=== PATIENT | female | born 1995 | race Caucasian/White ===

== ENCOUNTER 2017-04-09 14:17 | Emergency (ER) | payer OTHER ==
[~2017-04-09] VITALS: Ht 149.9 cm; Wt 75.8 kg
[~2017-04-09 14:17] MED LIST: ALBU90OI INH; BIRTH CONTROL; CEPH500 PO; CIPR500 PO; CODACE30 PO; CRUTCH4 USE; CYCL10 PO; IBUP400 PO; IBUP800 PO; Keflex500 MG PO; METPRE4DP PO; Monodox100 MG PO; PHENA200 PO; Pyridium200 MG PO; RXCODACET PO; SPACE CHAMBER1 EACH MC
[2017-04-09] MEDS ORDERED: Veetids 500500 MG PO (15:13)
== END 2017-04-09 15:27 | disposition home or self-care (01) ==
LOC: ER 14:17
DX: J02.0 Streptococcal pharyngitis (principal); F17.200 Nicotine dependence, unspecified, uncomplicated
CPT/HCPCS: 87430; 99282

== ENCOUNTER 2017-04-17 09:54 | Emergency (ER) | payer OTHER ==
[~2017-04-17] VITALS: Ht 149.9 cm; Wt 74.8 kg
[~2017-04-17 09:54] MED LIST changes: +Veetids 500500 MG PO
== END 2017-04-17 11:45 | disposition home or self-care (01) ==
LOC: ER 09:54
DX: S60.041A Contusion of right ring finger without damage to nail, initial encounter (principal); F17.200 Nicotine dependence, unspecified, uncomplicated; W22.8XXA Striking against or struck by other objects, initial encounter
CPT/HCPCS: 29125; 73130; 90471; 90714; 99283; L3917

== ENCOUNTER 2019-03-28 11:51 | Emergency (ER) | payer OTHER ==
[~2019-03-28] VITALS: Ht 149.9 cm; Wt 81.7 kg
[~2019-03-28 11:51] MED LIST changes: +Mucinex600 MG PO
[2019-03-28] MEDS ORDERED: BENZ100A PO (12:19)
[2019-03-28] MEDS ORDERED: ONDA4ODT MM (12:19)
== END 2019-03-28 12:26 | disposition home or self-care (01) ==
LOC: ER 11:51
DX: J10.1 Influenza due to other identified influenza virus with other respiratory manifestations (principal); F17.210 Nicotine dependence, cigarettes, uncomplicated
CPT/HCPCS: 99283

== ENCOUNTER 2019-09-03 17:44 | Emergency (ER) | payer OTHER ==
[~2019-09-03] VITALS: Ht 149.9 cm; Wt 90.7 kg
[~2019-09-03 17:44] MED LIST changes: +BENZ100A PO; +ONDA4ODT MM
[2019-09-03] MEDS ORDERED: PRED20 PO (19:59)
== END 2019-09-03 20:11 | disposition home or self-care (01) ==
LOC: ER 17:44
DX: L23.7 Allergic contact dermatitis due to plants, except food (principal); F17.210 Nicotine dependence, cigarettes, uncomplicated
CPT/HCPCS: 99282

== ENCOUNTER 2019-09-20 13:35 | Emergency (ER) | payer OTHER ==
[~2019-09-20] VITALS: Ht 149.9 cm; Wt 90.7 kg
[~2019-09-20 13:35] MED LIST changes: +PRED20 PO
[2019-09-20] MEDS ORDERED: CYCL10 PO (15:42)
[2019-09-20] MEDS ORDERED: LIDO700A20 TOP (15:42)
== END 2019-09-20 16:02 | disposition home or self-care (01) ==
LOC: ER 13:35
DX: M62.830 Muscle spasm of back (principal); F17.210 Nicotine dependence, cigarettes, uncomplicated
CPT/HCPCS: 99282

== ENCOUNTER 2020-02-15 07:45 | Emergency (ER) | payer OTHER ==
[~2020-02-15] VITALS: Ht 149.9 cm; Wt 92.1 kg
[~2020-02-15 07:45] MED LIST changes: +LIDO700A20 TOP
[2020-02-15] MEDS ORDERED: Iron Chews15 MG PO (08:02)
[2020-02-15] MEDS ORDERED: IBUP600 PO (09:45)
== END 2020-02-15 09:55 | disposition home or self-care (01) ==
LOC: ER 07:45
DX: S93.601A Unspecified sprain of right foot, initial encounter (principal); F17.210 Nicotine dependence, cigarettes, uncomplicated; W20.8XXA Other cause of strike by thrown, projected or falling object, initial encounter; Y92.89 Other specified places as the place of occurrence of the external cause; Y99.0 Civilian activity done for income or pay
CPT/HCPCS: 73630; 99283-25; A9270-GY

== ENCOUNTER → 2020-02-23 | Outpatient (CLI) | payer OTHER ==
[~2020-02-23] MED LIST changes: +IBUP600 PO; +Iron Chews15 MG PO
[2020-02-25 13:10] LABS: CHLAMYDIA TRACHOMATIS, NAA Negative (Negative)
== END | disposition home or self-care (01) ==
LOC: LAB SHORT 16:25 → LAB 16:25
PROVIDERS: Student in an Organized Health Care Education/Training Program
DX: Z12.4 Encounter for screening for malignant neoplasm of cervix (principal); Z11.3 Encounter for screening for infections with a predominantly sexual mode of transmission
CPT/HCPCS: 87491; 87591; G0145

== ENCOUNTER 2021-05-10 20:47 | Emergency (ER) | payer OTHER ==
[~2021-05-10] VITALS: Ht 149.9 cm; Wt 86.2 kg
[2021-05-10] MEDS ORDERED: IBUP400 PO (21:23)
[2021-05-10] MEDS ORDERED: Cyclobenzaprine5 MG PO (21:23)
== END 2021-05-10 22:00 | disposition home or self-care (01) ==
LOC: ER 20:47
DX: M79.18 Myalgia, other site (principal); Z79.899 Other long term (current) drug therapy; F17.210 Nicotine dependence, cigarettes, uncomplicated
CPT/HCPCS: 99283; A9270

== ENCOUNTER 2022-01-14 21:41 | Emergency (ER) | payer OTHER ==
[~2022-01-14] VITALS: Ht 149.9 cm; Wt 88.5 kg
[~2022-01-14 21:41] MED LIST changes: +Cyclobenzaprine5 MG PO
== END 2022-01-15 00:44 | disposition home or self-care (01) ==
LOC: ER 21:41
DX: B34.9 Viral infection, unspecified (principal); F17.210 Nicotine dependence, cigarettes, uncomplicated; Z88.8 Allergy status to other drugs, medicaments and biological substances
CPT/HCPCS: 99283; A9270